=== PATIENT | female | born 1975 | race Caucasian/White ===

== ENCOUNTER 2018-06-12 20:58 | Emergency (ER) | payer OTHER ==
[~2018-06-12] VITALS: Ht 157.5 cm; Wt 72.6 kg
[2018-06-12] MEDS ORDERED: LISINOPRIL40 MG (21:09)
[2018-06-13] MEDS ORDERED: PERCOCET 5-3251 EACH PO (07:28)
[2018-06-13] MEDS ORDERED: LISINOPRIL20 MG PO (07:28)
[2018-06-13] MEDS ORDERED: LEVAQUIN750 MG PO (07:28)
[2018-06-13] MEDS ORDERED: AMBIEN CR12.5 MG PO (07:28)
[2018-06-13] MEDS ORDERED: CELECOXIB200 MG PO (07:28)
[2018-06-13] MEDS ORDERED: INTESTINEX680 M1 PO (07:28)
== END 2018-06-13 08:10 | disposition home or self-care (01) ==
LOC: ER 20:58
DX: N39.0 Urinary tract infection, site not specified (principal); B96.89 Other specified bacterial agents as the cause of diseases classified elsewhere; M54.5 Low back pain